=== PATIENT | male | born 1990 | race African-American/Black ===

== ENCOUNTER 2019-04-29 15:23 | Emergency (ER) | payer OTHER ==
[2019-04-29] MEDS: KETOROLAC 30 MG INJ IM (16:33)
== END 2019-04-29 17:47 | disposition home or self-care (01) ==
LOC: FTE 15:23
DX: S22.32XA Fracture of one rib, left side, initial encounter for closed fracture (principal); V49.40XA Driver injured in collision with unspecified motor vehicles in traffic accident, initial encounter
CPT/HCPCS: 71100; 96372; 99284-25